=== PATIENT | female | born 1985 | race Two or more races ===

== ENCOUNTER 2024-08-09 15:22 | Emergency (ER) | payer OTHER ==
[~2024-08-09] VITALS: Ht 160 cm; Wt 68.0 kg
[2024-08-09 15:58] VITALS: BP 119/78; O2SAT 98
[2024-08-09 18:12] LABS: BASO % 0.4 % (0.1-1.2); EOS # 0.08 (0.04-0.54); EOS % 1.2 % (0.7-7.0); HEMATOCRIT 35.6 % (34.1-44.9); HEMOGLOBIN 12.1 g/dL (11.2-15.7); LYMPH # 2.06 (1.18-3.74); LYMPH % 30.3 % (19.3-53.1); MEAN CORPUSCULAR HEMOGLOBIN 29.4 pg (25.6-32.2); MONO # 0.56 (0.24-0.82); MONO % 8.2 % (4.7-12.5); NEUT # 4.05 (1.56-6.13); NEUT % 59.8 % (34.0-71.1); PLATELET COUNT 256 K/uL (163-369); RED BLOOD COUNT 4.12 M/uL (3.93-5.22); RED CELL DISTRIBUTION WIDTH 12.2 % (11.6-14.4)
[2024-08-09 18:33] LABS: URINE APPEARANCE Clear; URINE BILIRRUBIN Negative (NEGATIVE); URINE BLOOD Negative; URINE COLOR Yellow; URINE GLUCOSE Negative (NEGATIVE); URINE KETONE Negative (NEGATIVE); URINE LEUKOCYTE Negative; URINE NITRATE Negative; URINE PROTEIN Negative (NEGATIVE); URINE UROBILINOGEN 0.2 E.U./dl
[2024-08-09 18:37] LABS: URINE BACTERIA 162.7 uL (0.0-1933); URINE EPITHELIAL CELLS 9.8 uL (0.0-38.8); URINE RBC 10.6 uL (0.0-20.8)
[2024-08-09 18:44] LABS: URINE WBC 1.4 uL (0.0-23.2)
[2024-08-09 18:48] LABS: ALBUMIN 3.8 gm/dL (3.4-5.0); BILIRUBIN TOTAL 0.36 mg/dL (0.3-1.2); CALCIUM 8.4 mg/dL (8.5-10.1); CREATININE SERUM 0.67 mg/dL (0.55-1.02); GFR 99.04; GLOBULINA 3.4 G/DL (2.4-3.5); POTASSIUM 3.93 mEq/L (3.5-5.1); TOTAL PROTEIN 7.2 gm/dL (6.4-8.2)
[2024-08-09] MEDS ORDERED: DEXAMETHASONE SODIUM PHOSPHATE 4 MG/ML VIAL IM ONE (20:00)
[2024-08-09] MEDS ORDERED: ORPHENADRINE CITRATE 30 MG/ML AMPUL IM ONE (20:00)
[2024-08-09] MEDS ORDERED: KETOROLAC TROMETHAMINE 60 MG VIAL IM ONE ×2 (20:00→20:26)
[2024-08-09] MEDS ORDERED: DEXAMETHASONE SODIUM PHOSPHATE 4 MG/ML VIAL ONE (20:26)
== END 2024-08-09 20:41 | disposition home or self-care (01) ==
LOC: ER 15:43
PROVIDERS: Preventive Medicine Public Health & General Preventive Medicine
DX: M54.2 Cervicalgia (principal); R51.9 Headache, unspecified

== ENCOUNTER 2024-09-06 08:15 | Inpatient (IN) | payer OTHER ==
[~2024-09-06] VITALS: Ht 160 cm; Wt 74.8 kg
[2024-09-06 09:55] LABS: BASO % 0.6 % (0.1-1.2); EOS # 0.08 (0.04-0.54); EOS % 1.7 % (0.7-7.0); HEMATOCRIT 37.6 % (34.1-44.9); HEMOGLOBIN 12.9 g/dL (11.2-15.7); LYMPH # 1.97 (1.18-3.74); LYMPH % 41.2 % (19.3-53.1); MEAN CORPUSCULAR HEMOGLOBIN 29.9 pg (25.6-32.2); MONO # 0.35 (0.24-0.82); MONO % 7.3 % (4.7-12.5); NEUT # 2.34 (1.56-6.13); PLATELET COUNT 265 K/uL (163-369); RED BLOOD COUNT 4.31 M/uL (3.93-5.22); RED CELL DISTRIBUTION WIDTH 12.3 % (11.6-14.4)
[2024-09-06 10:09] VITALS: BP 109/69
[2024-09-06 10:12] VITALS: BP 120/82
[2024-09-06 10:15] LABS: COVID-19 AG NEGATIVE (NEGATIVE)
[2024-09-06 10:32] LABS: PARTIAL THROMBOPLASTIN TIME 28.2 SECONDS (22.0-34.0); PROTHROMBIN TIME 10.9 SECONDS (9.0-11.5)
[2024-09-06 10:43] LABS: ALBUMIN 4.2 gm/dL (3.4-5.0); BILIRUBIN TOTAL 0.46 mg/dL (0.3-1.2); CREATININE SERUM 0.79 mg/dL (0.55-1.02); GFR 81.89; GLOBULINA 3.2 G/DL (2.4-3.5); POTASSIUM 4.43 mEq/L (3.5-5.1); TOTAL PROTEIN 7.4 gm/dL (6.4-8.2)
[2024-09-06 10:50] LABS: URINE APPEARANCE Clear; URINE BILIRRUBIN Negative (NEGATIVE); URINE BLOOD Negative; URINE COLOR Yellow; URINE GLUCOSE Negative (NEGATIVE); URINE KETONE Negative (NEGATIVE); URINE LEUKOCYTE Negative; URINE NITRATE Negative; URINE PROTEIN Negative (NEGATIVE); URINE UROBILINOGEN 0.2 E.U./dl
[2024-09-06 10:51] LABS: URINE BACTERIA 309.5 uL (0.0-1933); URINE EPITHELIAL CELLS 11.5 uL (0.0-38.8); URINE RBC 18.1 uL (0.0-20.8); URINE WBC 12.8 uL (0.0-23.2)
[2024-09-12] MEDS ORDERED: CEFAZOLIN SODIUM 1,000 MG VIAL ONE ×2 (09:31→20:52)
[2024-09-12] MEDS ORDERED: POVIDONE-IODINE 118 ML BOTT TOP ONE (12:20)
[2024-09-12] MEDS ORDERED: HEMOSTATIC MATRIX 1 KIT KIT TOP ONE (14:27)
[2024-09-12] MEDS ORDERED: SUGAMMADEX SODIUM 200 MG/2 ML VIAL IV ONE (14:46)
[2024-09-12] MEDS ORDERED: MORPHINE SULFATE 4 MG/ML VIAL IV ONE ×2 (16:35→18:20)
[2024-09-13 01:19] VITALS: BP 109/69
[2024-09-13] MEDS ORDERED: KETOROLAC TROMETHAMINE 10 MG TABLET PO SCH (02:00)
[2024-09-13] MEDS ORDERED: MORPHINE SULFATE 2 MG/ML CARTRIDGE IV SCH (04:00)
[2024-09-13] MEDS ORDERED: CEFAZOLIN SODIUM 1,000 MG VIAL IV ONE (08:00)
[2024-09-13 08:47] VITALS: BP 126/78
[2024-09-13] MEDS ORDERED: ONDANSETRON HCL 2 MG/ML VIAL IV SCH (09:00)
[2024-09-13 16:00] VITALS: BP 120/80
[2024-09-13] MEDS ORDERED: SUGAMMADEX SODIUM 200 MG/2 ML VIAL IV ONE (20:45)
[2024-09-14 00:59] VITALS: BP 115/72
[2024-09-14 09:33] VITALS: BP 113/78
== END 2024-09-14 10:59 | disposition home or self-care (01) | DRG 743 ==
LOC: O/R 09-12 06:00 → SURH 09-12 08:15 → OB/GYN 09-12 16:02
PROVIDERS: ADMIT Obstetrics & Gynecology; ATTEND Obstetrics & Gynecology
PROC: 0UT70ZZ Resection of Bilateral Fallopian Tubes, Open Approach (ICD-10-PCS; 2024-09-12)
PROC: 0UT20ZZ Resection of Bilateral Ovaries, Open Approach (ICD-10-PCS; 2024-09-12)
PROC: 0DNW0ZZ Release Peritoneum, Open Approach (ICD-10-PCS; 2024-09-12)
PROC: 0DN80ZZ Release Small Intestine, Open Approach (ICD-10-PCS; 2024-09-12)
PROC: 0UT90ZZ Resection of Uterus, Open Approach (ICD-10-PCS; principal; 2024-09-12 09:15)
DX: D25.1 Intramural leiomyoma of uterus (principal); N72 Inflammatory disease of cervix uteri; N83.01 Follicular cyst of right ovary; N83.11 Corpus luteum cyst of right ovary; N73.6 Female pelvic peritoneal adhesions (postinfective)